=== PATIENT | female | born 1990 | race Caucasian/White ===

== ENCOUNTER 2017-05-30 15:14 | Emergency (ER) | payer OTHER ==
[2017-05-30 15:28] VITALS: BMI 23.3
[2017-05-30 15:32] VITALS: RESP 18; TEMP 98.3; O2SAT 100
--- NOTE | 2017-05-30 15:56 | ED PDOC ---
Arrival/HPI - General Chief Complaint: Abdominal Pain Time Seen by Provider: 05/30/17 15:34 - History of Present Illness Narrative History of Present Illness (Text): 05/30/17 15:51 27yo female with lower abdominal pressure and intermittent back pain. pt states she is . Denies cramping, gu symptoms, denies vaginal bleeding. States she has no chest pain, no vomiting. Pt is complaining of intermittent nausea. pt states she had an US done last week in [place]. pt has imaging and US report from 05/24/17. Shows IUP 6 weeks along. Past Medical History - Provider Review Nursing Documentation Reviewed: Yes - Infectious Disease Hx of Infectious Diseases: None - Endocrine/Metabolic Hx Hypothyroidism: Yes - Psychiatric Hx Substance Use: No - Anesthesia Hx Anesthesia: No Family/Social History Family/Social History: Unknown Family HX Smoking Status: Never Smoked Hx Alcohol Use: No Hx Substance Use: No Allergies/Home Meds Allergies/Adverse Reactions: Allergies No Known Allergies Allergy (Verified 05/30/17 15:28) Home Medications: Home Meds Medication Instructions Recorded Confirmed Levothyroxine [Synthroid] 1 tab PO DAILY 05/30/17 05/30/17 Physical Exam - Physical Exam Narrative Physical Exam (Text): 05/30/17 15:57 - Review of Systems Constitutional: Normal. absent: Fatigue, Weight Change, Fevers Eyes: Normal ENT: denies sore throat, denies tristhmus Respiratory: Normal. absent: SOB, Cough, Sputum Cardiovascular: absent: Chest Pain, Palpitations, Syncope Gastrointestinal: abdominal pain, nausea. absent: Diarrhea, Vomiting Genitourinary: Normal. absent: Dysuria, Frequency, Hematuria, vaginal bleeding Musculoskeletal: absent: Arthralgias, Neck Pain Skin: no rashes, no erythema Neurological: absent: Focal Weakness Endocrine: Normal Hemo/Lymphatic: Normal Psychiatric: No suicidal or homicidal ideations Physical exam Patient appears age appropriate in no distress, speaking full sentences without difficulty - Systems Exam Head: Present: Atraumatic, Normocephalic Pupils: Present: PERRL Extroacular Muscles: Present: EOMI Conjunctiva: Present: Normal Mouth: Present: Moist Mucous Membranes Neck: Present: Normal Range of Motion. No: MIDLINE TENDERNESS, Paraspinal Tenderness Respiratory/Chest: Present: Clear to Auscultation, Good Air Exchange. No: Respiratory Distress, Accessory Muscle Use, Tachypneic Cardiovascular: Present: Regular Rate and Rhythm, Normal S1, S2, Peripheal Pulses Present. No: Murmurs Abdomen: Present: Normal Bowel Sounds. No: Tenderness, Distention, Peritoneal Signs, Rebound, Guarding Back: Present: Normal Inspection. No: Midline Tenderness, Paraspinal Tenderness Upper Extremity: Present: Normal Inspection. No: Cyanosis, Edema Lower Extremity: Present: Normal Inspection. No: Edema Neurological: Present: GCS=15, Speech Normal, cranial nerves II through XII fully intact with no cerebellar abnormality, neurosensory fully intact. No focal neurological deficits. Skin: Present: Warm, Dry, Normal Color. No: Rashes Lymphatic: Present: OX3, NI, NC Psychiatric: Present: Alert, Oriented x 3, Normal Insight, Normal Concentration Vital Signs Reviewed: Yes Vital Signs Temp Pulse Resp BP Pulse Ox 05/30/17 16:33 74 18 116/68 100 05/30/17 15:32 98.3 F 81 18 118/75 100 Temperature: Afebrile Blood Pressure: Normal Pulse: Regular Respiratory Rate: Normal Appearance: Positive for: Well-Appearing Pain Distress: None Mental Status: Positive for: Alert and Oriented X 3 Medical Decision Making ED Course and Treatment: 05/30/17 16:03 27yo female with lower abd pain and lower back pain, along with nausea. No acute findings on PE. Pt has an US report with a normal 6 week IUP. UA ordered pt asking for [facility] referral which will be provided. pt also instructed to start taking vitamins. 05/30/17 16:47 UA unremarkable pt instructed to f/u with outpatient [facility] specialist pt in no distress at this time and denies any pain states she feels comfortable being dc'd home with outpatient f/u Pt states she understands to return to the ER right away for new or worsening symptoms or for inability to f/u with PMD or specialist as instructed. Patient states that she fully agrees with and understands discharge instructions. States that she agrees with the plan and disposition. Verbalized and repeated discharge instructions and plan. I have given the patient opportunity to ask any additional questions. - Lab Interpretations Lab Results: Lab Results 05/30/17 15:53: Urine Color Yellow, Urine Appearance Clear, Urine pH 6.0, Ur Specific [place] 1.025, Urine Protein Negative, Urine Glucose (UA) Negative, Urine Ketones Trace H, Urine Blood Negative, Urine Nitrate Negative, Urine Bilirubin Negative, Urine Urobilinogen 0.2, Ur Leukocyte Esterase Negative Disposition/Present on Arrival - Present on Arrival Any Indicators Present on Arrival: No History of DVT/PE: No History of Uncontrolled Diabetes: No Urinary Catheter: No History of Decub. Ulcer: No History Surgical Site Infection Following: None - Disposition Have Diagnosis and Disposition been Completed?: Yes Diagnosis: Abdominal pain during Disposition: HOME/ ROUTINE Disposition Time: 16:54 Patient Plan: Discharge Condition: GOOD Discharge Instructions (ExitCare): Abdominal Pain in (ED) Additional Instructions: PLEASE RETURN TO THE EMERGENCY DEPARTMENT FOR NEW OR WORSENING SYMPTOMS. RETURN RIGHT AWAY IF YOU CANNOT FOLLOW UP WITH YOUR PRIMARY CARE DOCTOR, CLINIC, OR SPECIALIST IN 1-2 DAYS. Prescriptions: Doxylamine/Pyridoxine HCl (B6) [Deion Stern 10-10 mg Tablet] 2 each PO DAILY PRN #24 tablet. PRN Reason: Nausea/Vomiting Multivitamin [Multivitamins] 1 each PO DAILY #14 capsule Referrals: PCP,NO [Primary Care Provider] - Follow up with primary Amanda Rice MD [Staff Provider] - Follow up with primary Forms: [employer] (Sudanese)
[2017-05-30 16:09] LABS: URINE BILIRUBIN NEGATIVE (NEGATIVE); URINE BLOOD NEGATIVE (NEGATIVE); URINE GLUCOSE (UA) NEGATIVE (NEGATIVE); URINE KETONE TRACE mg/dL (NEGATIVE); URINE LEUKOCYTE ESTERASE NEGATIVE Leu/uL (NEGATIVE); URINE PROTEIN NEGATIVE mg/dL (<30 mg/dL); URINE UROBILINOGEN 0.2 E.U./dL (<1 E.U./dL)
[2017-05-30 16:13] LABS: URINE APPEARANCE CLEAR (CLEAR); URINE COLOR YELLOW (YELLOW)
[2017-05-30 16:34] VITALS: BP 116/68; PULSE 74
== END 2017-05-30 17:00 | disposition home or self-care (01) ==
LOC: ED 15:14
DX: O26.891 Other specified pregnancy related conditions, first trimester (principal); Z3A.01 Less than 8 weeks gestation of pregnancy; R10.9 Unspecified abdominal pain